=== PATIENT | male | born 1965 | race Caucasian/White ===

== ENCOUNTER 2016-12-11 15:06 | Emergency (ER) | payer OTHER ==
--- NOTE | 2016-12-11 15:19 | PDOC ---
Attending Attestation - Resident Resident Name: Riki Maldonado - ED Attending Attestation I have performed the following: I have examined & evaluated the patient, The case was reviewed & discussed with the resident, I agree w/resident's findings & plan, Exceptions are as noted - Medical Decision Making 12/11/16 16:54 Well appearing no apparent distress labs unremarkable for acute pathology history and examination consistent with vagal syncope vrs atypical sz. Patient had some upper abdominal discomfort after eating a greasy meal then began to feel dizzy and lightheaded. He has had 7 previous similar episodes in the past. He had no tongue biting no incontinence no shaking. His previous seizures were generally generalized tonic-clonic. Differential diagnosis includes vagal syncope versus breakthrough seizure. We have contacted his neurologist he has a follow-up appointment with his neurologist as well as his primary care doctor He regained consciousness with no medical intervention He is currently asymptomatic has a normal neurologic examination and normal physical examination and EKG which shows no abnormalities no evidence of WPW, Brugada, prolonged QT Status post 1 L of normal saline patient feels much better Findings, the need for follow-up and strict return instructions discussed with patient. <Jaquan Manzo - Last Filed: 12/11/16 17:18> - HPI HPI: 12/11/16 15:43 51 y/o M with a PMHx of seizures, colon CA presents to the ED after a syncopal episode today. Patient reports associated dizziness, headache and abdominal pain prior to passing out. Patient become unresponsive and was taken to the ED. Patient reports since September 2015 he has had 7 different similar syncopal episodes. Denies alcohol, tobacco, drug use. Denies chest pain, SOB. Denies nausea, vomiting, diarrhea. A complete review of 10 out of 10 review of systems is taken and is negative apart from what is previously mentioned below and in the HPI. - Physicial Exam PE: 12/11/16 15:43 Vitals: Triage Vital signs reviewed General Appearance: no acute distress, well nourished well developed Head: Atraumatic Eyes: Pupils equal reactive round, extraocular movement intact Neck: Supple; No Nucal rigidity Chest Wall: Nontender Cardiac: Regular rate and rhythm, no murmurs, no rubs, no gallops Lungs: Clear to auscultation bilateral, good air movement bilaterally Abdomen: Soft, non distended, normal bowel sounds, non tender to palpation Extremities: Full range of motion to all extremities, no cyanosis, clubbing, or edema Skin: Warm and dry, no rashes or lesions, no rash, no petechiae Neuro: AOX3; Cranial Nerves 2-12 grossly intact, Strength intact to all extremities, Sensation intact to all extremities Psych: normal mood, normal affect - Medical Decision Making 12/11/16 15:43 Documentation prepared by Lizz Anand, acting as medical fee clerk for Jaquan Manzo MD. <Lizz Anand - Last Filed: 12/11/16 17:22> Heart Score/ECG Review #1 12/11/16 15:43 EKG performed at 15:19 demonstrates rate of 77, rhythm of sinus, axis equal to normal. No T wave inversions, no ST Elevations. No WPW, no prolonged QT, no brugada <Lizz Anand - Last Filed: 12/11/16 17:22>
[2016-12-11 15:26] VITALS: BMI 30.5
[2016-12-11] MEDS ORDERED: SODIUM CHLORIDE 1,000 ML IV STA (15:41)
--- NOTE | 2016-12-11 15:51 | PDOC ---
History of Present Illness - History of Present Illness Initial Comments: 12/11/16 15:49 Patient is a 51 year old male with history of TBI, seizures, colon cancer s/p chemo presenting with 5 minute LOC one hour ago. <Riki Maldonado - Last Filed: 12/11/16 15:49> <Jaquan Manzo - Last Filed: 12/11/16 16:56> - General Chief Complaint: Syncope/Near Syncope Stated Complaint: SYNCOPE/NEAR SYNCOPE Time Seen by Provider: 12/11/16 15:13 Past History - Past Medical History Cancer: Yes (colon) Seizures: Yes - Suicide/Smoking/Psychosocial Hx Smoking History: Unknown if ever smoked Have you smoked in the past 12 months: No Information on smoking cessation initiated: No Hx Alcohol Use: No Drug/Substance Use Hx: No <Riki Maldonado - Last Filed: 12/11/16 15:49> <Jaquan Manzo - Last Filed: 12/11/16 16:56> - Past Medical History Allergies/Adverse Reactions: Allergies Allergy/AdvReac Type Severity Reaction Status Date / Time No Known Allergies Allergy Verified 12/11/16 15:14 *Physical Exam - Vital Signs Last Vital Signs Temp Pulse Resp BP Pulse Ox 97.8 F 78 20 139/83 98 12/11/16 15:14 12/11/16 15:14 12/11/16 15:14 12/11/16 15:14 12/11/16 15:14 <Riki Maldonado - Last Filed: 12/11/16 15:49> - Vital Signs Last Vital Signs Temp Pulse Resp BP Pulse Ox 97.8 F 78 20 139/83 98 12/11/16 15:14 12/11/16 15:14 12/11/16 15:14 12/11/16 15:14 12/11/16 15:14 <Jaquan Manzo - Last Filed: 12/11/16 16:56> ED Treatment Course - LABORATORY CBC & Chemistry Diagram: 12/11/16 16:02 12/11/16 16:02 - ADDITIONAL ORDERS Additional order review: Laboratory Results 12/11/16 16:02 Sodium 140 Potassium 4.1 Chloride 105 Carbon Dioxide 28 Anion Gap 7 L BUN 11 Creatinine 1.3 Creat Clearance w eGFR 58.20 Random Glucose 96 Calcium 8.7 Magnesium 2.3 Total Bilirubin 0.4 AST 41 H ALT 51 Alkaline Phosphatase 70 Creatine Kinase 252 Troponin I < 0.02 Total Protein 7.2 Albumin 3.8 12/11/16 16:02 RBC 5.34 MCV 84.1 MCHC 33.3 RDW 15.8 MPV 8.7 Neutrophils % 57.6 Lymphocytes % 30.0 Monocytes % 8.5 Eosinophils % 3.2 Basophils % 0.7 - RADIOLOGY Radiology Studies Ordered: Category Date Time Status CHEST X-RAY PORTABLE* [RAD] Stat Radiology 12/11/16 15:19 Completed - Medications Given in the ED: ED Medications Discontinued Medications Generic Name Dose Route Start Last Admin Trade Name Freq PRN Reason Stop Dose Admin Sodium Chloride 1,000 mls @ 1,000 mls/hr 12/11/16 15:41 12/11/16 15:56 Normal Saline - IV 12/11/16 16:40 1,000 mls/hr ASDIR STA Administration <Jaquan Manzo - Last Filed: 12/11/16 16:56> *DC/Admit/Observation/Transfer <Riki Maldonado - Last Filed: 12/11/16 15:49> - Discharge Dispostion Admit: No <Jaquan Manzo - Last Filed: 12/11/16 16:56> Diagnosis at time of Disposition: Vasovagal syncope - Discharge Dispostion Disposition: HOME Condition at time of disposition: Good - Patient Instructions Additional Instructions: Drink plenty of fluids. Follow up with your primary care provider this week. Return to the emergency department for any severe worsening symptoms or for any concerns.
[2016-12-11 16:27] LABS: BASOPHIL 0.7 % (0-2.0); EOSINOPHIL 3.2 % (0-4.5); MCHC 33.3 g/dl (32.0-35.9); MEAN CELL VOLUME 84.1 fl (80-96); MEAN PLT VOLUME 8.7 fl (7.5-11.1); NEUTROPHILS 57.6 % (42.8-82.8); PLATELET COUNT 146 K/MM3 (134-434); RDW 15.8 % (11.9-15.9); WHITE BLOOD COUNT 5.6 K/mm3 (4.0-10.0)
[2016-12-11 16:43] LABS: ALBUMIN 3.8 g/dl (3.4-5.0); ANION GAP 7 (8-16); BILIRUBIN,TOTAL 0.4 mg/dL (0.2-1.0); CALCIUM 8.7 mg/dL (8.5-10.1); CO2 28 mmol/L (21-32); CREATININE 1.3 mg/dL (0.7-1.3); GLUCOSE,RANDOM 96 mg/dL (74-106); MAGNESIUM 2.3 mg/dL (1.8-2.4); SGOT/AST 41 U/L (15-37); SGPT/ALT 51 U/L (12-78); TOT PROT 7.2 g/dl (6.4-8.2)
[2016-12-11 16:45] LABS: ALK PHOS 70 U/L (45-117); CPK 252 IU/L (39-308); TROPONIN I < 0.02 ng/ml (0.00-0.05)
[2016-12-11 16:53] LABS: INR 1.01 (0.82-1.09); PROTHROMBIN TIME (PATIENT) 11.4 SEC (9.98-11.88)
[2016-12-11 17:24] VITALS: BP 131/88; PULSE 72; TEMP 97.6
--- NOTE | 2016-12-12 09:48 | EKG ---
Test Reason : Blood Pressure : / mmHG Vent. Rate : 077 BPM Atrial Rate : 077 BPM P-R Int : 146 ms QRS Dur : 082 ms QT Int : 368 ms P-R-T Axes : 014 065 048 degrees QTc Int : 416 ms NORMAL SINUS RHYTHM NORMAL ECG NO PREVIOUS ECGS AVAILABLE Confirmed by JOHN HEAD MD ([id number]) on 12/12/2016 9:48:14 AM Referred By: Confirmed By:JOHN HEAD MD
== END 2016-12-11 17:24 | disposition home or self-care (01) ==
LOC: JER 15:06
PROC: 3E0337Z Introduction of Electrolytic and Water Balance Substance into Peripheral Vein, Percutaneous Approach (ICD-10-PCS; principal; 2016-12-11)
DX: R55 Syncope and collapse (principal); Z87.820 Personal history of traumatic brain injury; Z86.69 Personal history of other diseases of the nervous system and sense organs; Z85.038 Personal history of other malignant neoplasm of large intestine
CPT/HCPCS: 36415; 71010-TC; 80053; 82550; 82553; 83735; 84484; 85025; 85610; 93005; 93010; 99285-25

== ENCOUNTER 2022-03-06 10:30 | Emergency (ER) | payer OTHER ==
[2022-03-06] MEDS ORDERED: ACETAMINOPHEN 325 MG TABLET (FP) PO ONE (11:06)
[2022-03-06 11:09] VITALS: BP 148/92; PULSE 72; RESP 18; TEMP 98.1; BMI 34.3
[2022-03-06] MEDS ORDERED: ACETAMINOPHEN 325 MG TABLET (FP) ONE (11:09)
[2022-03-06] MEDS ORDERED: LIDOCAINE 5% TOPICAL PATCH TP ONE (11:42)
[2022-03-06] MEDS ORDERED: IBUPROFEN 600 MG TABLET (FP) PO ONE ×2 (11:42→11:45)
[2022-03-06] MEDS ORDERED: diazePAM 2 MG TABLET PO ONE (11:42)
[2022-03-06] MEDS ORDERED: diazePAM 2 MG TABLET ONE (11:45)
[2022-03-06] MEDS ORDERED: LIDOCAINE 5% TOPICAL PATCH ONE (11:45)
[2022-03-06] MEDS ORDERED: LIDOCAINE PATCH REMOVAL MC SCH (22:00)
== END 2022-03-06 12:55 | disposition home or self-care (01) ==
LOC: FER 10:30
DX: G50.1 Atypical facial pain (principal); M54.50 Low back pain, unspecified; M79.604 Pain in right leg; W10.9XXA Fall (on) (from) unspecified stairs and steps, initial encounter
CPT/HCPCS: 70450-TC; 70486-TC; 72131-TC; 99285-25